=== PATIENT | male | born 1945 | race Caucasian/White ===

== ENCOUNTER → 2016-09-12 | Outpatient (CLI) | payer MEDICARE, OTHER ==
--- NOTE | 2016-09-12 17:06 | CT ---
EXAMINATION TYPE: CT abdomen pelvis wo con DATE OF EXAM: 09/12/2016 COMPARISON: NONE HISTORY: Right sided flank pain with hematuria CT DLP: 1218 mGycm Automated exposure control for dose reduction was used. TECHNIQUE: Helical acquisition of images was performed from the lung bases through the pelvis. FINDINGS: Lung bases are clear of consolidation. There is no pleural effusion. There is no pericardial effusion . Liver spleen pancreas gallbladder appear normal. Bile ducts are not dilated. There is no adrenal mass. The kidneys have normal size and contour. There is no hydronephrosis. Urete rs are not dilated. There is no retroperitoneal adenopathy. There are 2 cysts in the upper pole right kidney to measure up to 2 cm. I see no intestinal wall thickening. There are no dilated loops. Bladder distends smoothly. Prostate is enlarged. There are mild spondylotic changes in the lumbar spine. Appendix appears normal. IMPRESSION: THERE ARE SMALL CORTICAL CYSTS IN THE UPPER POLE RIGHT KIDNEY. NO EVIDENCE OF RENAL STONE OR OBSTRUCT ION. ATHEROSCLEROTIC VASCULAR DISEASE. NORMAL APPENDIX.
== END | disposition home or self-care (01) ==
LOC: RADCTMAIN 16:00
PROVIDERS: ATTEND Internal Medicine Geriatric Medicine
DX: N28.1 Cyst of kidney, acquired (principal)
CPT/HCPCS: 74176

== ENCOUNTER → 2020-04-28 | Outpatient (CLI) | payer MEDICARE, OTHER ==
--- NOTE | 2020-04-28 11:41 | CT ---
EXAMINATION TYPE: CT sinus wo con DATE OF EXAM: 04/28/2020 COMPARISON: None HISTORY: Chronic Sinusitis CT DLP: [address] of the paranasal sinuses was performed in the axial and coronal planes. Bone and soft tissue settings are submitted. The paranasal sinuses demonstrate normal aeration and development. Medial maxillary antrectomy is not ed bilaterally. Partial ethmoidectomy also seen. The paranasal sinuses are free of mucosal thickening or air fluid level. The osteal meatal units are patent bilaterally. The nasal septum is midline. No bony destructive changes are seen within the field of view. IMPRESSION: Normal unenhanced CT of the paranasal sinuses.
== END | disposition home or self-care (01) ==
LOC: RADCTMAIN 11:03
PROVIDERS: ATTEND Otolaryngology
DX: J32.9 Chronic sinusitis, unspecified (principal); Z88.5 Allergy status to narcotic agent
CPT/HCPCS: 70486